=== PATIENT | female | born 1950 | race Caucasian/White ===

== ENCOUNTER 2018-02-12 16:18 | Outpatient (RCR) | payer BC, SELFPAY ==
[2018-02-12 17:38] LABS: International Normalized Ratio 1.6; Prothrombin Time (Protime)PT. 18.9 SECONDS (11.7-14.9)
== END 2018-02-12 17:00 | disposition home or self-care (01) ==
LOC: LAB 16:18
PROVIDERS: Family Provider Family Medicine; PCP Family Medicine; Visit Provider Internal Medicine Cardiovascular Disease
DX: I48.91 Unspecified atrial fibrillation (principal); Z79.01 Long term (current) use of anticoagulants
CPT/HCPCS: 36415; 85610

== ENCOUNTER 2018-03-15 16:04 | Outpatient (RCR) | payer BC, SELFPAY ==
[2018-02-19 17:19] LABS: International Normalized Ratio 2.1; Prothrombin Time (Protime)PT. 23.7 SECONDS (11.7-14.9)
[2018-02-28 11:59] LABS: International Normalized Ratio 2.5; Prothrombin Time (Protime)PT. 27.5 SECONDS (11.7-14.9)
[2018-03-15 16:58] LABS: International Normalized Ratio 3.9
[2018-03-15 17:19] LABS: AST(SGOT) 16 U/L (15-37); Alanine Aminotransfer ALT/SGPT 31 U/L (13-56); Albumin, Serum 3.3 g/dL (3.2-5.0); Alkaline Phosphatase 114 U/L (45-117); Bilirubin, Direct 0.27 mg/dL (0.00-0.30); Cholesterol 105 mg/dL (200); Globulin 4.1 g/dL (2.2-4.2); High Density Lipoprotein 43 mg/dL; Protein, Total 7.4 g/dL (6.4-8.2); Triglycerides 96 mg/dL; Very Low Density Lipoprotein 19 mg/dL (5-40)
[2018-03-15 17:32] LABS: Prothrombin Time (Protime)PT. 38.8 SECONDS (11.7-14.9)
== END 2018-03-15 17:00 | disposition home or self-care (01) ==
LOC: LAB 16:04
PROVIDERS: Family Provider Family Medicine; PCP Family Medicine; Visit Provider Internal Medicine Cardiovascular Disease
DX: I48.91 Unspecified atrial fibrillation (principal); Z79.01 Long term (current) use of anticoagulants; E78.5 Hyperlipidemia, unspecified; E11.9 Type 2 diabetes mellitus without complications; E66.9 Obesity, unspecified
CPT/HCPCS: 36415; 80061; 80076; 85610

== ENCOUNTER 2018-03-20 04:45 | Inpatient (IN) | payer BC, MEDICARE, SELFPAY ==
[2018-03-20] VITALS (14 sets, daily range): BP systolic 94–134; BP diastolic 43–97; PULSE 79–119; RESP 14–24; TEMP 36.5–36.8; O2SAT 94–98; BMI 47.9; BMI 46.1
--- NOTE | 2018-03-20 04:48 | RAD_ITS ---
STUDY: X-RAY CHEST REASON FOR EXAM: Female, 67 years old. Shortness of breath. TECHNIQUE: AP portable chest. COMPARISON: October 20, 2015. FINDINGS: The lungs are clear and expanded. There is no demonstrated pleural abnormality. Normal size heart. Normal mediastinum and yaquelin. Normal visualized pulmonary arteries. Normal visualized aortic arch and descending thoracic aorta. Normal visualized thoracic spine. Normal visualized ribs, clavicles, and shoulders. There is no demonstrated abnormality of the visualized soft tissue structures of the upper abdomen. RAD/Chest 1 View (Portable) IMPRESSION: Normal x-ray examination of the chest. Electronically Signed: Ryan Mg MD at 5:45 EDT , Service support ,
--- NOTE | 2018-03-20 04:48 | EKG12_ITS ---
Test Reason : SOB Blood Pressure : / mmHG Vent. Rate : 119 BPM Atrial Rate : 115 BPM P-R Int : 000 ms QRS Dur : 070 ms QT Int : 300 ms P-R-T Axes : 000 027 029 degrees QTc Int : 422 ms Atrial fibrillation Low voltage QRS Abnormal ECG Confirmed by FERCHO FIELDS, CORINE ([id number]), newspaper or periodical editor HOMAR BARNES ([id number] on 03/23/2018 3:19:58 PM Referred By: DR URBINA Confirmed By:CORINE BRANTLEY MD
--- NOTE | 2018-03-20 04:51 | ED.VISSUMM ---
- ER Visit Summary Date of Service: 03/20/18 Chief Complaint: Shortness of breath, chest heaviness History of Present Illness: The patient is a 67 F with medical history significant for atrial fibrillation and hypertension presents to the emergency department with shortness of breath. The patient follows with Dr. Vang for history of atrial fibrillation. She is on Coumadin. She was actually seen in the office about 10 days ago. She states that she has been having some exertional dyspnea at work. She works at [employer] at night. She states that tonight, she was working and began to have shortness of breath and lightheadedness. She states she felt as if she is going to pass out. She also had chest tightness which she states is new for her. She has been having shortness of breath with exertion over the past month. This was actually documented on her last office note. The plan was for her to have outpatient dobutamine stress echo. She states that tonight, the symptoms just did not relieved with rest. She denies any history of cardiovascular disease. She has never had a heart attack. Her last cardiac workup was in 2014. Physical Examination: Vital signs reviewed General: Well-nourished, well-developed Head: Normocephalic, atraumatic Eyes: Pupils equal and reactive, extraocular muscles intact Neck, supple, no lymphadenopathy Heart: Iregular rate and rhythm Respiratory: No distress, clear bilaterally Abdomen: Soft, nontender, nondistended, no peritoneal signs Back: Nontender Extremities: Nontender, no edema, no cords Skin: Normal color no rash Neuro: Alert and oriented, no focal or lateralizing deficits Test Results: [] Emergency Department Course and Treatment: It is difficult to self the patient is symptomatic from her atrial fibrillation versus another cause like cardiovascular disease or her underlying valvular disease. In review the notes, Dr. Vang did want her to have an outpatient echo and dobutamine stress. She has been having increasing dyspnea especially working. The patient did have A. fib on arrival, and her rate was 90s-1 teens. Her EKG does not show acute ischemic change. Chest x-ray shows no evidence of volume overload. The patient did have pain improvement with nitro in route by squad. Screening labs do demonstrate hyperkalemia with evidence of acute kidney injury. Patient does have some mild peaking of the T waves, but it is hard to tell if this is an acute change from her prior EKG. She is treated with calcium, insulin, dextrose, Kayexalate, and albuterol. With the patient's hyperkalemia, acute kidney injury, and exertional dyspnea I do feel that she will require admission. Patient was discussed with the hospitalist. Treatment Plan: [] Disposition: Admission Impression:. 1. Hyperkalemia 2. Acute kidney injury 3. exertional dyspnea 4. Chest tightness 5. Atrial fibrillation This note was generated with [employer] dictation software. It may contain incorrect words, spelling, and punctuation that were not noted in review of the chart prior to signing ED Disposition - Plan for ED Patient: Chief Complaint: Shortness of Breath Referrals: Tony Montesinos MD [Primary Care Provider] -
[2018-03-20] MEDS: Ondansetron 4 MG/2 ML Vial IV (04:58)
[2018-03-20 05:14] LABS: Absolute Lymphocyte Count 2.07 X10^3/ul (0.83-4.51); Absolute Neutrophil Count 8.6 X10^3/uL (2.0-7.7); Basophil# 0.03 X10^3/uL; Basophil% 0.3 % (0-1); Eosinophil# 0.01 X10^3/uL; Eosinophils% 0.1 % (0-5); Hematocrit 43.1 % (37-47); Hemoglobin 14.5 g/dl (12.0-15.0); Lymphocyte # 2.07 X10^3/ul (4.0); Lymphocyte % 17.7 % (19-41); Mean Corp Hgb Conc 33.6 g/gl (32-36); Mean Corpuscular Hgb 29.8 pg (27.0-32.0); Mean Corpuscular Volume 88.5 fL (81-99); Monocyte# 0.96 X10^3/uL; Monocyte% 8.2 % (0-10); Neutrophil # 8.61 X10^3/uL (2.7-7.7); Neutrophil % 73.5 % (47-70); Platelet Count 281 K/mm3 (150-450); RBC Distribution Width CV 14.5 % (11.6-14.6); RBC Distribution Width SD 46.1 fl (35.1-43.9); Red Blood Count 4.87 M/mm3 (4.2-5.4); White Blood Count 11.7 K/mm3 (4.4-11.0)
[2018-03-20 05:20] LABS: POSITIVE COUNT NO; POSITIVE DIFFERENTIAL NO; POSITIVE MORPHOLOGY NO
[2018-03-20 05:23] LABS: International Normalized Ratio 3.4; Prothrombin Time (Protime)PT. 34.9 SECONDS (11.7-14.9)
[2018-03-20 06:28] LABS: Anion Gap 9 (5-15); BUN 53 mg/dL (7-18); BUN/Creat Ratio 20.5 RATIO (10-20); Chloride 100 mmol/L (98-107); Creatinine, Serum 2.58 mg/dL (0.55-1.02); EST Glomerular Filtration Rate 20 mL/min (>60); Est Glom Filt Rate - Afr Amer 24 mL/min (>60); Estimated Creatinine Clearance 16.28 ml/min; Glucose 283 mg/dL (74-106); Potassium 6.3 mmol/L (3.5-5.1); Sodium Level 134 mmol/L (136-145)
--- NOTE | 2018-03-20 06:30 | ED.RN ---
LAB CALLED TO REPORT K+ 6.3, MADE AWARE.
[2018-03-20] MEDS: Albuterol 2.5 MG/3 ML VIAL.NEB. 5 MG INHALATION (06:48)
[2018-03-20] MEDS: Dextrose 50%-Water 25 GM/50 ML DISP.SYRIN IV (07:02)
[2018-03-20] MEDS: Sodium Polystyrene Sulfonate 15 GM/60 ML UDC 30 GM PO (07:02)
--- NOTE | 2018-03-20 07:42 | PCM.HP.STD ---
Problem List (1) Chest pain Status: Acute (2) JEWELL (acute kidney injury) Status: Acute (3) Nonrheumatic mitral (valve) stenosis Status: Chronic (4) Pulmonary hypertension Status: Chronic (5) Hypertension Status: Chronic (6) Peripheral edema Status: Chronic (7) Hyperlipidemia Status: Chronic (8) Obesity Status: Chronic (9) Diabetes mellitus type 2 in obese Status: Chronic (10) Atrial fibrillation Status: Chronic History of Present Illness Date of Admission: 03/20/18 Chief Complaint: chest pain The patient is a 67 year old F who has been experiencing chest pain with exertion. Chest pain with exertion is been going on for the past few days. 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 Patient was concerned and presented to the emergency room. In the emergency room, patient was found to be in atrial fibrillation. Patient had a creatinine of 2.58 which is up from her baseline of 1.04. She had a hemolyzed blood sample that showed a potassium of 6.3. It is unknown to the emergency room physician that she had a hemolyzed sample as he was in the midst of a critically ill patient at that time but did order for the patient have albuterol, calcium gluconate, insulin and dextrose. Patient is currently chest pain-free at this time. Patient is being admitted for further chest pain evaluation plus evaluation of her acute kidney injury. [] Past Medical History Past Medical History (Chronic Problems): Chronic Problems (Last Reviewed 03/09/18 @ 10:38 by Audra Hinds) History of bilateral knee replacement (Chronic) Nonrheumatic mitral (valve) stenosis (Chronic) Pulmonary hypertension (Chronic) Nonrheumatic tricuspid (valve) insufficiency (Chronic) Paroxysmal atrial fibrillation (Chronic) prison current use of anticoagulant (Chronic) Hypertension (Chronic) Peripheral edema (Chronic) Hyperlipidemia (Chronic) Obesity (Chronic) Diabetes mellitus type 2 in obese (Chronic) Atrial fibrillation (Chronic) Allergies No Known Allergies Allergy (Verified 03/20/18 05:05) Home Medications: Ambulatory Orders Medication Instructions Recorded Aspirin [Aspirin, Baby] 81 mg PO DAILY@0800 10/29/14 Atorvastatin Calcium [Lipitor] 20 mg PO QHS 10/29/14 Insulin Detemir [Levemir FlexPen] 30 units SC BID 10/29/14 Nebivolol HCl [Bystolic (Beta 5 mg PO DAILY 10/29/14 Jose)] acarbose 100 mg tablet 100 mg PO TID tab 03/09/18 dulaglutide 0.75 mg/0.5 mL 0.75 mg SC QWEEK 03/09/18 subcutaneous pen injector furosemide 40 mg tablet 40 mg PO DAILY #90 tab 03/09/18 insulin lispro (U-100) 100 unit/mL 4 unit SC .COMPLEX ml 03/09/18 subcutaneous pen metformin 500 mg tablet 500 mg PO QDAY tab 03/09/18 lisinopril 10 mg tablet 5 mg PO DAILY 03/19/18 Dapagliflozin Propanediol [Farxiga] 10 mg PO DAILY 03/20/18 Warfarin Sodium [Coumadin] 2 mg PO SUMOTUWETHSA 03/20/18 Warfarin [Coumadin ([facility])] 5 mg PO SUMOTUWETHSA 03/20/18 Warfarin [Coumadin ([facility])] 6 mg PO FR 03/20/18 Surgical History: total knee arthroplasty - Bilateral Psychiatric History: No pertinent psych hx Smoking Status: Never smoker Tobacco Use: Non-smoker Alcohol: None Drugs: None - *Family History Maternal History Items: No pertinent history, - - No heart disease Review of Systems Constitutional: Denies: Anorexia, Chills, Fever Eyes: Denies: Blurred vision, Double vision HEENT: Denies: Head Aches, Sinus Congestion, Sinus Drainage Cardiovascular: Reports: Chest Pain, Edema Respiratory: Reports: Shortness of breath upon exertion. Denies: Cough Gastrointestinal: Denies: Abdominal Pain, Nausea, Vomiting Genitourinary: Denies: Dysuria Musculoskeletal: Denies: Joint Pain, Joint Tenderness Skin: Denies: Dryness, Rash Neurological: Denies: Numbness, Tingling, Focal weakness Psychiatric: Denies: Anxiety, Depression Endocrine: Reports: Change in Body Habitus - Has put on 5 pounds in the past month. Hematologic/ Lymphatic: Reports: Easy Bleeding - R gets to be around 5. Denies: Hx of blood clot VTE Information - Inpt Only VTE Present on Admission: No Patient Problems: Active and Suspected Problems (Last Reviewed 03/09/18 @ 10:38 by Audra Hinds) Chest pain (Acute) JEWELL (acute kidney injury) (Acute) - Physical Exam General: Alert, Cooperative, No apparent distress HEENT: Atraumatic, Normocephalic Neck: No Nodes, Thyroid Normal Size and Texture Lungs: Clear to auscultation, Normal air movement, No rhonchi, No wheeze Cardiovascular: Regular rate, Regular Rhythm, Normal S1, Normal S2, No murmurs Abdomen: Bowel Sounds Present, Soft, Non Tender, Non-Distended, No Hepato-splenomegaly Extremities: No edema, No Calf Tenderness Skin: No rashes, No breakdown Musculoskeletal: No Tenderness to Palpation of Joints or Extremities, No Muscle Wasting Neurological: Neuro grossly intact, Muscle tone normal, Sensory exam intact to light touch and pain Psych/Mental Status: Normal Affect, Appropriate Vital Signs Temp Pulse Resp BP Pulse Ox 36.5 C L 119 H 17 117/56 L 96 03/20/18 07:15 03/20/18 07:15 03/20/18 07:15 03/20/18 07:15 03/20/18 07:15 Oxygen Flow Rate (L/min) 2 Oxygen Delivery Method Nasal Cannula Weight: 119 kg Body Mass Index (BMI) 47.9 Laboratory Tests Past 24 Hrs 03/20/18 03/20/18 03/20/18 04:55 04:55 04:55 WBC 11.7 H RBC 4.87 Hgb 14.5 Hct 43.1 MCV 88.5 MCH 29.8 MCHC 33.6 RDW 14.5 RDW Differential 46.1 H Plt Count 281 MPV 11.0 Immature Gran % (Auto) 0.200 Neut % (Auto) 73.5 H Lymph % (Auto) 17.7 L [place] % (Auto) 8.2 Eos % (Auto) 0.1 Baso % (Auto) 0.3 Absolute Neuts (auto) 8.6 H Absolute Lymphs (auto) 2.07 Total Counted Not Reportable PT 34.9 H INR 3.4 Sodium 134 L Potassium 6.3 H* Chloride 100 Carbon Dioxide 25.0 Anion Gap 9 BUN 53 H Creatinine 2.58 H Estim Creat Clear Calc 16.28 Est GFR (MDRD) Af Amer 24 L Est GFR (MDRD) Non-Af 20 L BUN/Creatinine Ratio 20.5 H Glucose 283 H Calcium 9.0 Troponin I < 0.02 B-Natriuretic Peptide 03/20/18 04:55 WBC RBC Hgb Hct MCV MCH MCHC RDW RDW Differential Plt Count MPV Immature Gran % (Auto) Neut % (Auto) Lymph % (Auto) [place] % (Auto) Eos % (Auto) Baso % (Auto) Absolute Neuts (auto) Absolute Lymphs (auto) Total Counted PT INR Sodium Potassium Chloride Carbon Dioxide Anion Gap BUN Creatinine Estim Creat Clear Calc Est GFR (MDRD) Af Amer Est GFR (MDRD) Non-Af BUN/Creatinine Ratio Glucose Calcium Troponin I B-Natriuretic Peptide 34.0 Clinical Impression(s) from Imaging Studies Chest X-Ray 03/20/18 04:48 IMPRESSION: Normal x-ray examination of the chest. Electronically Signed: Ryan Mg MD at 5:45 EDT , Service support , EKG reviewed and showed atrial fibrillation. Assessment/Plan Active and Suspected Problems (Last Reviewed 03/09/18 @ 10:38 by Audra Hinds) Chest pain (Acute) JEWELL (acute kidney injury) (Acute) 1. Chest pain Concern for stable angina Cycle troponins, check stress test, check an echocardiogram. 2. Acute kidney injury I presume prerenal. Check urine studies IV fluids Hold Lasix, metformin, lisinopril, acarbose 3. 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 Overall complicating patient's care. 4. Atrial fibrillation In RVR currently Will monitor continue for bsystolic Hold Coumadin given supratherapeutic INR for now. Patient is not a candidate for novel anticoagulants given her mitral stenosis 5. Mitral stenosis Complicating care Follow-up with cardiology as outpatient 6. Diabetes mellitus type 2 Insulin-dependent Given acute kidney injury, hold metformin and acarbose. 7. DVT prophylaxis patient is currently anticoagulated. Code Visit Inpatient E&M: 90363 Init Hosp L3
--- NOTE | 2018-03-20 07:53 | HP.PCM_ITS ---
Problem List (1) Chest pain Status: Acute (2) JEWELL (acute kidney injury) Status: Acute (3) Nonrheumatic mitral (valve) stenosis Status: Chronic (4) Pulmonary hypertension Status: Chronic (5) Hypertension Status: Chronic (6) Peripheral edema Status: Chronic (7) Hyperlipidemia Status: Chronic (8) Obesity Status: Chronic (9) Diabetes mellitus type 2 in obese Status: Chronic (10) Atrial fibrillation Status: Chronic History of Present Illness Date of Admission: 03/20/18 Chief Complaint: chest pain The patient is a 67 year old F who has been experiencing chest pain with exertion. Chest pain with exertion is been going on for the past few days. 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 Patient was concerned and presented to the emergency room. In the emergency room, patient was found to be in atrial fibrillation. Patient had a creatinine of 2.58 which is up from her baseline of 1.04. She had a hemolyzed blood sample that showed a potassium of 6.3. It is unknown to the emergency room physician that she had a hemolyzed sample as he was in the midst of a critically ill patient at that time but did order for the patient have albuterol, calcium gluconate, insulin and dextrose. Patient is currently chest pain-free at this time. Patient is being admitted for further chest pain evaluation plus evaluation of her acute kidney injury. [] Past Medical History Past Medical History (Chronic Problems): Chronic Problems (Last Reviewed 03/09/18 @ 10:38 by Audra Hinds) History of bilateral knee replacement (Chronic) Nonrheumatic mitral (valve) stenosis (Chronic) Pulmonary hypertension (Chronic) Nonrheumatic tricuspid (valve) insufficiency (Chronic) Paroxysmal atrial fibrillation (Chronic) alf current use of anticoagulant (Chronic) Hypertension (Chronic) Peripheral edema (Chronic) Hyperlipidemia (Chronic) Obesity (Chronic) Diabetes mellitus type 2 in obese (Chronic) Atrial fibrillation (Chronic) Allergies No Known Allergies Allergy (Verified 03/20/18 05:05) Home Medications: Ambulatory Orders Medication Instructions Recorded Aspirin [Aspirin, Baby] 81 mg PO DAILY@0800 10/29/14 Atorvastatin Calcium [Lipitor] 20 mg PO QHS 10/29/14 Insulin Detemir [Levemir FlexPen] 30 units SC BID 10/29/14 Nebivolol HCl [Bystolic (Beta 5 mg PO DAILY 10/29/14 Jose)] acarbose 100 mg tablet 100 mg PO TID tab 03/09/18 dulaglutide 0.75 mg/0.5 mL 0.75 mg SC QWEEK 03/09/18 subcutaneous pen injector furosemide 40 mg tablet 40 mg PO DAILY #90 tab 03/09/18 insulin lispro (U-100) 100 unit/mL 4 unit SC .COMPLEX ml 03/09/18 subcutaneous pen metformin 500 mg tablet 500 mg PO QDAY tab 03/09/18 lisinopril 10 mg tablet 5 mg PO DAILY 03/19/18 Dapagliflozin Propanediol [Farxiga] 10 mg PO DAILY 03/20/18 Warfarin Sodium [Coumadin] 2 mg PO SUMOTUWETHSA 03/20/18 Warfarin [Coumadin ([facility])] 5 mg PO SUMOTUWETHSA 03/20/18 Warfarin [Coumadin ([facility])] 6 mg PO FR 03/20/18 Surgical History: total knee arthroplasty - Bilateral Psychiatric History: No pertinent psych hx Smoking Status: Never smoker Tobacco Use: Non-smoker Alcohol: None Drugs: None - *Family History Maternal History Items: No pertinent history, - - No heart disease Review of Systems Constitutional: Denies: Anorexia, Chills, Fever Eyes: Denies: Blurred vision, Double vision HEENT: Denies: Head Aches, Sinus Congestion, Sinus Drainage Cardiovascular: Reports: Chest Pain, Edema Respiratory: Reports: Shortness of breath upon exertion. Denies: Cough Gastrointestinal: Denies: Abdominal Pain, Nausea, Vomiting Genitourinary: Denies: Dysuria Musculoskeletal: Denies: Joint Pain, Joint Tenderness Skin: Denies: Dryness, Rash Neurological: Denies: Numbness, Tingling, Focal weakness Psychiatric: Denies: Anxiety, Depression Endocrine: Reports: Change in Body Habitus - Has put on 5 pounds in the past month. Hematologic/ Lymphatic: Reports: Easy Bleeding - R gets to be around 5. Denies : Hx of blood clot VTE Information - Inpt Only VTE Present on Admission: No Patient Problems: Active and Suspected Problems (Last Reviewed 03/09/18 @ 10:38 by Audra Hinds) Chest pain (Acute) JEWELL (acute kidney injury) (Acute) - Physical Exam General: Alert, Cooperative, No apparent distress HEENT: Atraumatic, Normocephalic Neck: No Nodes, Thyroid Normal Size and Texture Lungs: Clear to auscultation, Normal air movement, No rhonchi, No wheeze Cardiovascular: Regular rate, Regular Rhythm, Normal S1, Normal S2, No murmurs Abdomen: Bowel Sounds Present, Soft, Non Tender, Non-Distended, No Hepato- splenomegaly Extremities: No edema, No Calf Tenderness Skin: No rashes, No breakdown Musculoskeletal: No Tenderness to Palpation of Joints or Extremities, No Muscle Wasting Neurological: Neuro grossly intact, Muscle tone normal, Sensory exam intact to light touch and pain Psych/Mental Status: Normal Affect, Appropriate Vital Signs Temp Pulse Resp BP Pulse Ox 36.5 C L 119 H 17 117/56 L 96 03/20/18 07:15 03/20/18 07:15 03/20/18 07:15 03/20/18 07:15 03/20/18 07:15 Oxygen Flow Rate (L/min) 2 Oxygen Delivery Method Nasal Cannula Weight: 119 kg Body Mass Index (BMI) 47.9 Laboratory Tests Past 24 Hrs 03/20/18 03/20/18 03/20/18 04:55 04:55 04:55 WBC 11.7 H RBC 4.87 Hgb 14.5 Hct 43.1 MCV 88.5 MCH 29.8 MCHC 33.6 RDW 14.5 RDW Differential 46.1 H Plt Count 281 MPV 11.0 Immature Gran % (Auto) 0.200 Neut % (Auto) 73.5 H Lymph % (Auto) 17.7 L [place] % (Auto) 8.2 Eos % (Auto) 0.1 Baso % (Auto) 0.3 Absolute Neuts (auto) 8.6 H Absolute Lymphs (auto) 2.07 Total Counted Not Reportable PT 34.9 H INR 3.4 Sodium 134 L Potassium 6.3 H* Chloride 100 Carbon Dioxide 25.0 Anion Gap 9 BUN 53 H Creatinine 2.58 H Estim Creat Clear Calc 16.28 Est GFR (MDRD) Af Amer 24 L Est GFR (MDRD) Non-Af 20 L BUN/Creatinine Ratio 20.5 H Glucose 283 H Calcium 9.0 Troponin I < 0.02 B-Natriuretic Peptide 03/20/18 04:55 WBC RBC Hgb Hct MCV MCH MCHC RDW RDW Differential Plt Count MPV Immature Gran % (Auto) Neut % (Auto) Lymph % (Auto) [place] % (Auto) Eos % (Auto) Baso % (Auto) Absolute Neuts (auto) Absolute Lymphs (auto) Total Counted PT INR Sodium Potassium Chloride Carbon Dioxide Anion Gap BUN Creatinine Estim Creat Clear Calc Est GFR (MDRD) Af Amer Est GFR (MDRD) Non-Af BUN/Creatinine Ratio Glucose Calcium Troponin I B-Natriuretic Peptide 34.0 Clinical Impression(s) from Imaging Studies Chest X-Ray 03/20/18 04:48 IMPRESSION: Normal x-ray examination of the chest. Electronically Signed: Ryan Mg MD at 5:45 EDT , Service support , EKG reviewed and showed atrial fibrillation. Assessment/Plan Active and Suspected Problems (Last Reviewed 03/09/18 @ 10:38 by Audra Hinds) Chest pain (Acute) JEWELL (acute kidney injury) (Acute) 1. Chest pain * Concern for stable angina * Cycle troponins, check stress test, check an echocardiogram. 2. Acute kidney injury * I presume prerenal. * Check urine studies * IV fluids * Hold Lasix, metformin, lisinopril, acarbose 3. Pulmonary hypertension * Group 2 due to left heart disease * Treat the underlying process. Overall complicating patient's care. 4. Atrial fibrillation * In RVR currently * Will monitor * continue for bsystolic * Hold Coumadin given supratherapeutic INR for now. * Patient is not a candidate for novel anticoagulants given her mitral stenosis 5. Mitral stenosis * Complicating care * Follow-up with cardiology as outpatient 6. Diabetes mellitus type 2 * Insulin-dependent * Given acute kidney injury, hold metformin and acarbose. 7. DVT prophylaxis patient is currently anticoagulated. Code Visit Inpatient E&M: 10114 Init Hosp L3
--- NOTE | 2018-03-20 09:13 | ECHOD_ITS ---
Reason For Study: AFIB Procedure This was a 2D Doppler, Color Flow transthoracic echocardiogram. The exam was of adequate technical quality. Exam performed portable in patient room. Left Ventricle Normal LV size. Left ventricular systolic function is normal. The estimated ejection fraction is 65 %. Unable to assess diastolic dysfunction. No regional wall motion abnormalities noted. Right Ventricle Normal RV size. Normal systolic function. Atria The left atrium is severely enlarged. The right atrium is moderately enlarged. No doppler evidence for ASD. Mitral Valve There is moderate to severe mitral annular calcification. Extension of the mitral annular calcifiation onto the posterior mitral valve leaflet. Mild (1+) mitral valve insufficiency. Tricuspid Valve Normal tricuspid valve. Mild tricuspid valve insufficiency. Right ventricular systolic pressure estimated to be 38 mmHg. Aortic Valve Trisinus/trileaflet aortic valve. Normal aortic valve. Pulmonic Valve The pulmonic valve is not well visualized. Trivial pulmonic valve insufficiency. Great Vessels Normal sized aortic root. Pericardium/Pleural No pericardial effusion. MMode/2D Measurements & Calculations LVIDd: 4.5 cm IVSd: 0.99 cm Ao root diam: 3.5 cm LVIDs: 3.1 cm LVPWd: 0.99 cm RVDd: 3.3 cm FS: 31.0 % LAV(MOD-bp): 87.1 ml LA A4 area: 27.3 cm2 RA A4 area: 18.9 cm2 LAV(MOD-bp) Indexed: 41.3 ml/m2 LAV(MOD-sp2): 85.8 ml LAV(MOD-sp4): 83.8 ml Doppler Measurements & Calculations Lat Peak E' Abdiaziz: 10.7 cm/sec Med Peak E' Abdiaziz: 8.6 cm/sec MV V2 max: 154.0 cm/sec MV max P.5 mmHg MV V2 mean: 93.8 cm/sec MV mean P.0 mmHg MV V2 VTI: 24.1 cm Ao V2 max: 153.2 cm/sec LV V1 max: 112.3 cm/sec PA V2 max: 105.7 cm/sec Ao max P.5 mmHg LV V1 max P.1 mmHg TR max abdiaziz: 272.8 cm/sec TR max P.9 mmHg Interpretation Summary Left ventricular systolic function is normal. The estimated ejection fraction is 65 %. The left atrium is severely enlarged. The right atrium is moderately enlarged. There is moderate to severe mitral annular calcification. Extension of the mitral annular calcifiation onto the posterior mitral valve leaflet. Mild (1+) mitral valve insufficiency. Trivial pulmonic valve insufficiency. Right ventricular systolic pressure estimated to be 38 mmHg. Unable to assess diastolic dysfunction. Ordering Physician: Bello Flowers Referring Physician: BELLO ESCOBAR Performed By: Jessica Tee, JUAN ALBERTO, RVT
[2018-03-20] MEDS: 0.9% Normal Saline 1,000 ML 125 ML IV (09:58)
[2018-03-20 10:06] LABS: Bedside Glucose 175 mg/dL (70-110)
[2018-03-20 10:14] LABS: Anion Gap 11 (5-15); BUN 56 mg/dL (7-18); Chloride 105 mmol/L (98-107); Creatinine, Serum 2.24 mg/dL (0.55-1.02); EST Glomerular Filtration Rate 23 mL/min (>60); Est Glom Filt Rate - Afr Amer 28 mL/min (>60); Estimated Creatinine Clearance 18.75 ml/min; Glucose 153 mg/dL (74-106); Potassium 4.2 mmol/L (3.5-5.1); Sodium Level 140 mmol/L (136-145)
--- NOTE | 2018-03-20 11:30 | CASEMGMT ---
RN CADEN Face to Face with patient for initial transition planning/care coordination assessment. RN CM introduced self and role at [facility]. Patient lying in bed, alert and oriented. Patient willing to participate in assessment and is able to answer all questions appropriately. Care providers, pharmacy, and demographics verified. See link attached. Patient wishes to discharge home, denies need for home health at this time. Patient states she has no further needs or concerns at this time. CM to follow for discharge planning needs that may arise. Disposition Plan: Patient to discharge home with family support and follow up plans in place.
[2018-03-20 13:01] LABS: Mucous, Urine 0 SEEN /hpf (<or=2+)
[2018-03-20 13:12] LABS: Color, Urine Yellow (Yellow); Glucose, Dipstick 1000 mg/dl (Normal); Ketone-Dipstick Negative (Negative); Leukocyte Esterase-Dipstick 500 /ul (Negative); Nitrite-Dipstick Negative (Negative); Occult Blood-Urine 25 /ul (Negative); Protein-Dipstick 15 mg/dl (Negative); Urine Bilirubin Dipstick Negative (Negative); Urine Clarity Cloudy (Clear); Urine Urobilinogen Normal (Normal)
[2018-03-20 13:20] LABS: Red Blood Cells-Urine 0-5 SEEN /hpf (0-5); Squamous Epithelial Cells - UA 0-5 SEEN /hpf (5-10); Transitional Epithelial - Ur 0-5 SEEN /hpf (0-5); White Blood Cells 50-100 SEEN /hpf (0-5)
[2018-03-20 13:21] LABS: Bacteria 1+ /hpf (None Seen)
[2018-03-20 13:24] LABS: Urea Nitrogen, Urine 709 mg/dL (NO RANGE EST.)
--- NOTE | 2018-03-20 13:27 | ED.RN ---
(late entry) Calcium gluconate stopped at 0805 after infusion.
[2018-03-20] MEDS: Nystatin Powder 15gm Bottle 1 APPLIC TOPICAL ×2 (13:36→22:16)
[2018-03-20 16:45] LABS: Bedside Glucose 119 mg/dL (70-110)
[2018-03-20] MEDS: Atorvastatin Calcium 20 MG Tablet PO (22:16)
[2018-03-20 22:26] LABS: Bedside Glucose 116 mg/dL (70-110)
[2018-03-21 03:05] VITALS: PULSE 79
[2018-03-21 03:37] VITALS: BP 128/57; PULSE 94; RESP 16; TEMP 37.1; O2SAT 97
[2018-03-21 06:04] LABS: Hematocrit 39.3 % (37-47); Hemoglobin 12.8 g/dl (12.0-15.0); Mean Corp Hgb Conc 32.6 g/gl (32-36); Mean Corpuscular Hgb 29.4 pg (27.0-32.0); Mean Corpuscular Volume 90.1 fL (81-99); Mean Platelet Vol. 10.6 fl (6.2-12.0); Platelet Count 215 K/mm3 (150-450); RBC Distribution Width SD 45.8 fl (35.1-43.9); Red Blood Count 4.36 M/mm3 (4.2-5.4); White Blood Count 6.2 K/mm3 (4.4-11.0)
[2018-03-21 06:10] LABS: Scan Indicated on CBC? Y/N NO
[2018-03-21] MEDS: Nystatin Powder 15gm Bottle 1 APPLIC TOPICAL ×2 (06:12→13:54)
[2018-03-21 06:27] LABS: Anion Gap 6 (5-15); BUN 44 mg/dL (7-18); BUN/Creat Ratio 32.4 RATIO (10-20); Calcium,Total 8.7 mg/dL (8.5-10.1); Chloride 110 mmol/L (98-107); Creatinine, Serum 1.36 mg/dL (0.55-1.02); EST Glomerular Filtration Rate 41 mL/min (>60); Est Glom Filt Rate - Afr Amer 50 mL/min (>60); Estimated Creatinine Clearance 30.88 ml/min; Glucose 57 mg/dL (74-106); Sodium Level 142 mmol/L (136-145)
[2018-03-21 06:40] VITALS: PULSE 100
--- NOTE | 2018-03-21 09:03 | STRESSREP ---
Stress Test Report Pharmacologic myocardial perfusion stress test. 67-year-old lady with a history of chest pain. Stress protocol: Resting EKG demonstrates atrial for ablation with a rate of 100 bpm. Resting blood pressure is 122/68 mmHg. 0.4 mg of regadenoson was infused per usual protocol followed by rapid intravenous saline flush injection continuous EKG monitoring was performed. The patient maintained atrial fibrillation throughout the recording. The maximum heart rate attained was 142 bpm which was 94% of maximum predicted heart rate the maximum workload attained was 1 metabolic equivalent. At rest there were no ST or T-wave changes noted suggest abnormal flow reserve at peak infusion no ST or T-wave changes were noted to suggest abnormal flow reserve. No clinical angina was noted. The resting blood pressure is 122/68 with a final blood pressure 122/78. Myocardial perfusion protocol. 14.9 mCi of technetium 99m sestamibi was injected at rest. 0.4 mg of regadenoson was infused per usual protocol. Peak infusion 44.7 mCi equivalents of test technetium 99m sestamibi was injected stress images were obtained stress and rest images were reconstructed and compared in the short axis vertical long and horizontal long axis. Gated images were also obtained pre- Perfusion SPECT analysis. Review of the stress images demonstrate normal uptake of tracer noted in all areas of the myocardium. The resting images similarly demonstrate normal uptake of tracer noted in all areas of the myocardium. No areas of reversibility are noted suggest ischemia no previous infarct is noted. Gated SPECT SPECT analysis The gated ejection fraction is 77%. Conclusion: Normal pharmacologic myocardial perfusion stress test with no evidence of ischemia. Atrial fibrillation noted. Preserved ejection fraction.
[2018-03-21 09:52] VITALS: BP 124/70; PULSE 97; RESP 18; TEMP 36.7; O2SAT 94
[2018-03-21] MEDS: Aspirin 81 MG TAB.CHEW PO (09:59)
[2018-03-21 10:05] VITALS: RESP 18
[2018-03-21 10:06] LABS: Bedside Glucose 110 mg/dL (70-110)
[2018-03-21 11:05] VITALS: PULSE 102
[2018-03-21 11:56] LABS: Bedside Glucose 146 mg/dL (70-110)
[2018-03-21 12:13] LABS: International Normalized Ratio 2.6; Prothrombin Time (Protime)PT. 28.1 SECONDS (11.7-14.9)
--- NOTE | 2018-03-21 13:50 | DCINST_ITS ---
- Discharge Diagnoses Current Active Problems: Current Active and Chronic Problems (Last Reviewed 03/09/18 @ 10:38 by Audra Hinds) Chest pain (Acute) JEWELL (acute kidney injury) (Acute) You will use the following diet at home:: Calorie/Carbohydrate Controlled ( specify 1200, 1400, etc) - 1800 kcal/day, Cardiac Your food should be the consistency of: Regular Your liquids should be the consistency of: Regular/Thin Discharge Activity: Return to Normal Activity Call your doctor if you observe: Fever of 101 or Higher, Shortness of breath Instructions: Discharge Instructions for Acute Kidney Injury Allergies/Adverse Reactions: Allergies No Known Allergies Allergy (Verified 03/20/18 05:05) Medications to take at Discharge Aspirin [Aspirin, Baby] 81 mg PO DAILY@0800 10/29/14 Atorvastatin Calcium [Lipitor] 20 mg PO QHS 10/29/14 Insulin Detemir [Levemir FlexPen] 30 units SC BID 10/29/14 Nebivolol HCl [Bystolic (Beta Jose)] 5 mg PO DAILY 10/29/14 dulaglutide 0.75 mg/0.5 mL subcutaneous pen injector 0.75 mg SC QWEEK 03/09/18 insulin lispro (U-100) 100 unit/mL subcutaneous pen 4 unit SC ACHS ml 03/09/18 lisinopril 10 mg tablet 5 mg PO DAILY 03/19/18 Dapagliflozin Propanediol [Farxiga] 10 mg PO DAILY 03/20/18 Warfarin Sodium [Coumadin] 2 mg PO SUMOTUWETHSA 03/20/18 Warfarin [Coumadin] 5 mg PO SUMOTUWETHSA 03/20/18 Warfarin [Coumadin] 6 mg PO FR 03/20/18 Furosemide [Lasix] 40 mg PO DAILY PRN #90 tab 03/21/18 Primary Care Physician: Tony Montesinos MD [Primary Care Provider] - Within 2 Weeks
--- NOTE | 2018-03-21 13:50 | PCM.DC.SUM ---
Discharge Date and Diagnosis - Problem List Patient Problems: Active and Suspected Problems (Last Reviewed 03/09/18 @ 10:38 by Audra Hinds) Chest pain (Acute) JEWELL (acute kidney injury) (Acute) Date of Admission: 03/20/18 Date of Discharge: 03/21/18 - Primary Discharge Diagnosis Active and Suspected Problems (Last Reviewed 03/09/18 @ 10:38 by Audra Hinds) Chest pain (Acute) JEWELL (acute kidney injury) (Acute) - Secondary Discharge Diagnosis Chronic Problems (Last Reviewed 03/09/18 @ 10:38 by Audra Hinds) History of bilateral knee replacement (Chronic) Nonrheumatic mitral (valve) stenosis (Chronic) Pulmonary hypertension (Chronic) Nonrheumatic tricuspid (valve) insufficiency (Chronic) Paroxysmal atrial fibrillation (Chronic) 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 Electronically Signed: Ryan Mg MD at 5:45 EDT , Service support , Operations: None Procedures: 2-D Echocardiogram, Stress test Summary of Care Provided: The patient is a 67 year old F presents with chest pain. Patient underwent a workup with a nuclear stress test that was negative. So no further cardiac workup is necessary. Patient did also present with acute kidney injury. She is creatinine was 2.58 on arrival. Baseline creatinine that we have available in our system was 1.04 from November 03, 2000 thousand 17. Patient's Lasix, lisinopril, metformin and acarbose were held. Today, the patient's creatinine is 1.36. I feel the patient may have been over diuresed so I have recommended patient will take Lasix as needed and to weigh herself daily and she put on 2 pounds in 1 day or 3 pounds 1 week then to take Lasix. Given the acute kidney injury and the fact the patient is already on insulin I have also recommended she DC the acarbose and metformin. Those 2 medications could be compounding the kidney failure. He did have an echocardiogram given her history of pulmonary hypertension but is essentially unchanged. Ejection fraction was 65%. Mitral stenosis remained unchanged. Patient follow-up cardiology as outpatient. 1. Chest pain Concern for stable angina Cycle troponins, check stress test, check an echocardiogram. 2. Acute kidney injury I presume prerenal. Check urine studies IV fluids Hold Lasix, metformin, lisinopril, acarbose 3. 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 Overall complicating patient's care. 4. Atrial fibrillation In RVR currently Will monitor continue for bsystolic Hold Coumadin given supratherapeutic INR for now. Patient is not a candidate for novel anticoagulants given her mitral stenosis 5. Mitral stenosis Complicating care Follow-up with cardiology as outpatient 6. Diabetes mellitus type 2 Insulin-dependent Given acute kidney injury, hold metformin and acarbose. [] Discharge Diet: Low fat/ Low Cholesterol, 1600 Calorie Control Diet Discharge Activity: Return to Normal Activity Call your doctor if you observe: Fever of 101 or Higher, Shortness of breath Home Medications: Medications to take at Discharge Aspirin [Aspirin, Baby] 81 mg PO DAILY@0800 10/29/14 Atorvastatin Calcium [Lipitor] 20 mg PO QHS 10/29/14 Insulin Detemir [Levemir FlexPen] 30 units SC BID 10/29/14 Nebivolol HCl [Bystolic (Beta Jose)] 5 mg PO DAILY 10/29/14 dulaglutide 0.75 mg/0.5 mL subcutaneous pen injector 0.75 mg SC QWEEK 03/09/18 insulin lispro (U-100) 100 unit/mL subcutaneous pen 4 unit SC ACHS ml 03/09/18 lisinopril 10 mg tablet 5 mg PO DAILY 03/19/18 Dapagliflozin Propanediol [Farxiga] 10 mg PO DAILY 03/20/18 Warfarin Sodium [Coumadin] 2 mg PO SUMOTUWETHSA 03/20/18 Warfarin [Coumadin] 5 mg PO SUMOTUWETHSA 03/20/18 Warfarin [Coumadin] 6 mg PO FR 03/20/18 Furosemide [Lasix] 40 mg PO DAILY PRN #90 tab 03/21/18 Primary Care Physician: Tony Montesinos MD [Primary Care Provider] - Within 2 Weeks Please Follow Up With: Roni Vang MD When: 4-6 weeks Patient Instructions: Discharge Instructions for Acute Kidney Injury Disposition: Home Minutes spent on discharge:: 32 Patient Condition:: Good Medical Necessity - Tobacco Use Smoking Status: Never smoker Tobacco Use: Non-smoker Meaningful Use Info Meaningful Use Diagnoses (Choose all that apply): None applicable Code Visit OBSV E&M: 02550 Observation care discharge
--- NOTE | 2018-03-21 13:53 | DS.PCM_ITS ---
Discharge Date and Diagnosis - Problem List Patient Problems: Active and Suspected Problems (Last Reviewed 03/09/18 @ 10:38 by Audra Hinds) Chest pain (Acute) JEWELL (acute kidney injury) (Acute) Date of Admission: 03/20/18 Date of Discharge: 03/21/18 - Primary Discharge Diagnosis Active and Suspected Problems (Last Reviewed 03/09/18 @ 10:38 by Audra Hinds) Chest pain (Acute) JEWELL (acute kidney injury) (Acute) - Secondary Discharge Diagnosis Chronic Problems (Last Reviewed 03/09/18 @ 10:38 by Audra Hinds) History of bilateral knee replacement (Chronic) Nonrheumatic mitral (valve) stenosis (Chronic) Pulmonary hypertension (Chronic) Nonrheumatic tricuspid (valve) insufficiency (Chronic) 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 Electronically Signed: Ryan Mg MD at 5:45 EDT , Service support , Operations: None Procedures: 2-D Echocardiogram, Stress test Summary of Care Provided: The patient is a 67 year old F presents with chest pain. Patient underwent a workup with a nuclear stress test that was negative. So no further cardiac workup is necessary. Patient did also present with acute kidney injury. She is creatinine was 2.58 on arrival. Baseline creatinine that we have available in our system was 1.04 from November 03, 2000 thousand 17. Patient's Lasix, lisinopril, metformin and acarbose were held. Today, the patient's creatinine is 1.36. I feel the patient may have been over diuresed so I have recommended patient will take Lasix as needed and to weigh herself daily and she put on 2 pounds in 1 day or 3 pounds 1 week then to take Lasix. Given the acute kidney injury and the fact the patient is already on insulin I have also recommended she DC the acarbose and metformin. Those 2 medications could be compounding the kidney failure. He did have an echocardiogram given her history of pulmonary hypertension but is essentially unchanged. Ejection fraction was 65% . Mitral stenosis remained unchanged. Patient follow-up cardiology as outpatient. 1. Chest pain * Concern for stable angina * Cycle troponins, check stress test, check an echocardiogram. 2. Acute kidney injury * I presume prerenal. * Check urine studies * IV fluids * Hold Lasix, metformin, lisinopril, acarbose 3. Pulmonary hypertension * Group 2 due to left heart disease * Treat the underlying process. Overall complicating patient's care. 4. Atrial fibrillation * In RVR currently * Will monitor * continue for bsystolic * Hold Coumadin given supratherapeutic INR for now. * Patient is not a candidate for novel anticoagulants given her mitral stenosis 5. Mitral stenosis * Complicating care * Follow-up with cardiology as outpatient 6. Diabetes mellitus type 2 * Insulin-dependent * Given acute kidney injury, hold metformin and acarbose. [] Discharge Diet: Low fat/ Low Cholesterol, 1600 Calorie Control Diet Discharge Activity: Return to Normal Activity Call your doctor if you observe: Fever of 101 or Higher, Shortness of breath Home Medications: Medications to take at Discharge Aspirin [Aspirin, Baby] 81 mg PO DAILY@0800 10/29/14 Atorvastatin Calcium [Lipitor] 20 mg PO QHS 10/29/14 Insulin Detemir [Levemir FlexPen] 30 units SC BID 10/29/14 Nebivolol HCl [Bystolic (Beta Jose)] 5 mg PO DAILY 10/29/14 dulaglutide 0.75 mg/0.5 mL subcutaneous pen injector 0.75 mg SC QWEEK 03/09/18 insulin lispro (U-100) 100 unit/mL subcutaneous pen 4 unit SC ACHS ml 03/09/18 lisinopril 10 mg tablet 5 mg PO DAILY 03/19/18 Dapagliflozin Propanediol [Farxiga] 10 mg PO DAILY 03/20/18 Warfarin Sodium [Coumadin] 2 mg PO SUMOTUWETHSA 03/20/18 Warfarin [Coumadin] 5 mg PO SUMOTUWETHSA 03/20/18 Warfarin [Coumadin] 6 mg PO FR 03/20/18 Furosemide [Lasix] 40 mg PO DAILY PRN #90 tab 03/21/18 Primary Care Physician: Tony Montesinos MD [Primary Care Provider] - Within 2 Weeks Please Follow Up With: Roni Vang MD When: 4-6 weeks Patient Instructions: Discharge Instructions for Acute Kidney Injury Disposition: Home Minutes spent on discharge:: 32 Patient Condition:: Good Medical Necessity - Tobacco Use Smoking Status: Never smoker Tobacco Use: Non-smoker Meaningful Use Info Meaningful Use Diagnoses (Choose all that apply): None applicable Code Visit OBSV E&M: 15417 Observation care discharge
[2018-03-22 13:12] LABS: Eosinophil Ct. Urine No Eosinophils Seen % (.)
--- NOTE | 2018-03-26 13:50 | CASEMGMT ---
RN CADEN DC Phone call. Call to cell phone, message left with call back information if pt would like to speak with SHIRLEY NEGRETE re: discharge, prescriptions or f/u appointments. Shahbaz OHARAN RN ACM
== END 2018-03-21 15:44 | disposition home or self-care (01) | DRG 313 ==
LOC: ED 05:33 → PCU 08:11
PROVIDERS: Emergency Provider Emergency Medicine; Family Provider Family Medicine; PCP Family Medicine
DX: R07.89 Other chest pain (principal); N17.9 Acute kidney failure, unspecified; Z68.42 Body mass index [BMI] 45.0-49.9, adult; I48.0 Paroxysmal atrial fibrillation; Z79.01 Long term (current) use of anticoagulants; E87.5 Hyperkalemia; I10 Essential (primary) hypertension; E78.5 Hyperlipidemia, unspecified; E11.9 Type 2 diabetes mellitus without complications; Z79.4 Long term (current) use of insulin; E66.9 Obesity, unspecified; Z71.3 Dietary counseling and surveillance; I27.20 Pulmonary hypertension, unspecified; I05.0 Rheumatic mitral stenosis
CPT/HCPCS: 36415; 71045; 78452; 80048; 81001; 82570; 82962; 83880; 84484; 84540; 85025; 85027; 85610; 87205; 93005; 93017; 93306; 94640; 99285; A9500; J7030; J7040; A4216; J0610; J2405; J2785

== ENCOUNTER → 2018-03-28 16:22 | Outpatient (CLI) | payer BC, SELFPAY ==
[2018-03-28 17:25] LABS: BUN 54 mg/dL (7-18); Creatinine, Serum 1.21 mg/dL (0.55-1.02); Glucose 159 mg/dL (74-106)
[2018-03-28 17:26] LABS: Anion Gap 7 (5-15); BUN/Creat Ratio 44.6 RATIO (10-20); Calcium,Total 8.5 mg/dL (8.5-10.1); Chloride 109 mmol/L (98-107); EST Glomerular Filtration Rate 47 mL/min (>60); Est Glom Filt Rate - Afr Amer 57 mL/min (>60); Potassium 4.5 mmol/L (3.5-5.1); Sodium Level 140 mmol/L (136-145)
[2018-03-28 17:46] LABS: International Normalized Ratio 2.4; Prothrombin Time (Protime)PT. 26.4 SECONDS (11.7-14.9)
== END ==
PROVIDERS: Family Provider Family Medicine; PCP Family Medicine
DX: N17.9 Acute kidney failure, unspecified (principal); Z79.01 Long term (current) use of anticoagulants; Z51.81 Encounter for therapeutic drug level monitoring
CPT/HCPCS: 36415; 80048; 85610

== ENCOUNTER 2018-04-05 17:15 | Outpatient (RCR) | payer BC, SELFPAY ==
[2018-04-05 17:44] LABS: International Normalized Ratio 1.9; Prothrombin Time (Protime)PT. 22.2 SECONDS (11.7-14.9)
[2018-04-05 18:15] LABS: Anion Gap 7 (5-15); BUN 38 mg/dL (7-18); BUN/Creat Ratio 33.9 RATIO (10-20); Calcium,Total 8.9 mg/dL (8.5-10.1); Chloride 108 mmol/L (98-107); Creatinine, Serum 1.12 mg/dL (0.55-1.02); EST Glomerular Filtration Rate 51 mL/min (>60); Est Glom Filt Rate - Afr Amer 62 mL/min (>60); Glucose 100 mg/dL (74-106); Potassium 4.5 mmol/L (3.5-5.1); Sodium Level 141 mmol/L (136-145)
== END 2018-04-05 18:00 | disposition home or self-care (01) ==
LOC: LAB 17:15
PROVIDERS: Family Provider Family Medicine; PCP Family Medicine; Visit Provider Internal Medicine Cardiovascular Disease
DX: E11.29 Type 2 diabetes mellitus with other diabetic kidney complication (principal); I48.91 Unspecified atrial fibrillation; Z79.01 Long term (current) use of anticoagulants
CPT/HCPCS: 36415; 80048; 85610

== ENCOUNTER → 2018-10-25 17:13 | Outpatient (CLI) | payer MEDICARE, OTHER, SELFPAY ==
[2018-10-25 16:17] VITALS: BMI 47.8
[2018-10-25 17:58] LABS: International Normalized Ratio 2.1; Prothrombin Time (Protime)PT. 23.2 SECONDS (11.7-14.9)
== END ==
PROVIDERS: Family Provider Family Medicine; PCP Family Medicine; Referring Provider Physician Assistant Medical; Visit Provider Physician Assistant Medical
DX: I34.2 Nonrheumatic mitral (valve) stenosis (principal)
CPT/HCPCS: 36415; 85610

== ENCOUNTER 2018-11-15 13:32 | Outpatient (RCR) | payer MEDICARE, SELFPAY ==
[2018-10-25 16:17] VITALS: BMI 47.8
[2018-11-15 14:56] LABS: International Normalized Ratio 1.8; Prothrombin Time (Protime)PT. 20.5 SECONDS (11.7-14.9)
== END 2018-11-15 14:00 | disposition home or self-care (01) ==
LOC: LAB 13:32
PROVIDERS: Family Provider Family Medicine; PCP Family Medicine; Referring Provider Internal Medicine Cardiovascular Disease; Visit Provider Internal Medicine Cardiovascular Disease
DX: I34.2 Nonrheumatic mitral (valve) stenosis (principal)
CPT/HCPCS: 36415; 85610

== ENCOUNTER 2018-12-17 16:09 | Outpatient (RCR) | payer MEDICARE, OTHER, SELFPAY ==
[2018-10-25 16:17] VITALS: BMI 47.8
[2018-12-03 17:32] LABS: International Normalized Ratio 2.8; Prothrombin Time (Protime)PT. 29.3 SECONDS (11.7-14.9)
[2018-12-17 17:24] LABS: International Normalized Ratio 2.1; Prothrombin Time (Protime)PT. 23.7 SECONDS (11.7-14.9)
== END 2018-12-17 17:00 | disposition home or self-care (01) ==
LOC: LAB 16:09
PROVIDERS: Family Provider Family Medicine; PCP Family Medicine; Referring Provider Internal Medicine Cardiovascular Disease; Visit Provider Internal Medicine Cardiovascular Disease
DX: I34.2 Nonrheumatic mitral (valve) stenosis (principal)
CPT/HCPCS: 36415; 85610

== ENCOUNTER 2019-01-16 16:08 | Outpatient (RCR) | payer MEDICARE, OTHER, SELFPAY ==
[2018-10-25 16:17] VITALS: BMI 47.8
[2019-01-16 18:20] LABS: International Normalized Ratio 2.8; Prothrombin Time (Protime)PT. 29.6 SECONDS (11.7-14.9)
== END 2019-01-17 15:01 | disposition home or self-care (01) ==
LOC: LAB 16:08
PROVIDERS: Family Provider Family Medicine; PCP Family Medicine; Referring Provider Internal Medicine Cardiovascular Disease; Visit Provider Internal Medicine Cardiovascular Disease
DX: I34.2 Nonrheumatic mitral (valve) stenosis (principal)
CPT/HCPCS: 36415; 85610

== ENCOUNTER 2019-02-15 13:52 | Outpatient (RCR) | payer MEDICARE, OTHER, SELFPAY ==
[2018-10-25 16:17] VITALS: BMI 47.8
[2019-02-13 17:12] LABS: International Normalized Ratio 1.9; Prothrombin Time (Protime)PT. 21.6 SECONDS (11.7-14.9)
[2019-02-15 15:07] LABS: International Normalized Ratio 2.4; Prothrombin Time (Protime)PT. 25.8 SECONDS (11.7-14.9)
== END 2019-02-15 14:37 | disposition home or self-care (01) ==
LOC: LAB 13:52
PROVIDERS: Family Provider Family Medicine; PCP Family Medicine; Referring Provider Internal Medicine Cardiovascular Disease; Visit Provider Internal Medicine Cardiovascular Disease
DX: I34.2 Nonrheumatic mitral (valve) stenosis (principal)
CPT/HCPCS: 36415; 85610

== ENCOUNTER 2019-03-19 15:40 | Outpatient (RCR) | payer MEDICARE, OTHER, SELFPAY ==
[2018-10-25 16:17] VITALS: BMI 47.8
[2019-03-12 17:25] LABS: International Normalized Ratio 1.6; Prothrombin Time (Protime)PT. 19.3 SECONDS (11.7-14.9)
[2019-03-19 16:38] LABS: International Normalized Ratio 2.4; Prothrombin Time (Protime)PT. 26.3 SECONDS (11.7-14.9)
== END 2019-03-19 16:00 | disposition home or self-care (01) ==
LOC: LAB 15:40
PROVIDERS: Family Provider Family Medicine; PCP Family Medicine; Referring Provider Internal Medicine Cardiovascular Disease; Visit Provider Internal Medicine Cardiovascular Disease
DX: I34.2 Nonrheumatic mitral (valve) stenosis (principal)
CPT/HCPCS: 36415; 85610

== ENCOUNTER 2019-04-09 15:58 | Outpatient (RCR) | payer MEDICARE, OTHER, SELFPAY ==
[2018-10-25 16:17] VITALS: BMI 47.8
[2019-04-09 16:53] LABS: International Normalized Ratio 2.7; Prothrombin Time (Protime)PT. 28.6 SECONDS (11.7-14.9)
== END 2019-04-09 16:58 | disposition home or self-care (01) ==
LOC: LAB 15:58
PROVIDERS: Family Provider Family Medicine; PCP Family Medicine; Referring Provider Internal Medicine Cardiovascular Disease; Visit Provider Internal Medicine Cardiovascular Disease
DX: I34.2 Nonrheumatic mitral (valve) stenosis (principal)
CPT/HCPCS: 36415; 85610

== ENCOUNTER 2019-06-24 16:39 | Outpatient (RCR) | payer MEDICARE, OTHER, SELFPAY ==
[2018-10-25 16:17] VITALS: BMI 47.8
[2019-06-24 16:00] VITALS: BMI 49.4
[2019-06-24 17:44] LABS: International Normalized Ratio 3.2; Prothrombin Time (Protime)PT. 32.9 SECONDS (11.7-14.9)
== END 2019-06-24 17:39 | disposition home or self-care (01) ==
LOC: LAB 16:39
PROVIDERS: Family Provider Family Medicine; PCP Family Medicine; Referring Provider Internal Medicine Cardiovascular Disease; Visit Provider Internal Medicine Cardiovascular Disease
DX: I34.2 Nonrheumatic mitral (valve) stenosis (principal)
CPT/HCPCS: 36415; 85610

== ENCOUNTER → 2019-07-15 | Outpatient (CLI) | payer MEDICARE, OTHER, SELFPAY ==
[2019-06-24 16:00] VITALS: BMI 49.4
--- NOTE | 2019-07-15 07:37 | ECHOCS_ITS ---
Reason For Study: AFIB Procedure This was a 2D Doppler, Color Flow transthoracic echocardiogram. The study was technically difficult. Contrast injection was performed. Exam performed in department. Left Ventricle Normal size and thickness. The estimated ejection fraction is 65 %. Unable to assess diastolic dysfunction. No regional wall motion abnormalities noted. Right Ventricle Moderately dilated right ventricle. Normal systolic function. Atria The left atrium is severely enlarged. Normal right atrium. Normal atrial septum. Mitral Valve Mild diffuse mitral valve thickening. Severe mitral annular calcification extending into the posterior leaflet. Mild mitral valve stenosis. Mild (1+) posteriorly directed mitral valve insufficiency. Tricuspid Valve Normal tricuspid valve. Moderate (2+) tricuspid valve insufficiency. Right ventricular systolic pressure estimated to be 63 mmHg. Severe pulmonary hypertension. Aortic Valve Trisinus/trileaflet aortic valve. Mild diffuse aortic valve thickening. Pulmonic Valve Normal pulmonic valve. Mild (1+) pulmonic valve insufficiency. Great Vessels Calcified aortic root. Mild atherosclerosis of the aortic arch. Normal inferior vena cava. Inferior vena cava collapse with sniff. Pericardium/Pleural No pericardial effusion. Medication 22 gauge I.V. with prn adaptor inserted into right arm. Diluted definity 2.0ml given slow IV push to enhance endocardial definition. MMode/2D Measurements & Calculations LVIDd: 5.5 cm IVSd: 0.89 cm LVOT diam: 2.0 cm LVIDs: 3.6 cm LVPWd: 0.85 cm RVDd: 4.3 cm FS: 35.3 % LVOT area: 3.1 cm2 Ao root diam: 3.6 cm LAV(MOD-bp): 97.8 ml LVAd ap4: 29.6 cm2 LAV(MOD-bp) Indexed: 44.5 ml/m2 EDV(MOD-sp4): 94.9 ml LAV(MOD-sp2): 120.2 ml EDV(sp4-el): 100.1 ml LAV(MOD-sp4): 81.9 ml LVAs ap4: 18.8 cm2 ESV(MOD-sp4): 46.8 ml ESV(sp4-el): 45.1 ml EF(MOD-sp4): 50.7 % EF(sp4-el): 54.9 % SV(MOD-sp4): 48.1 ml SV(sp4-el): 55.0 ml LA A4 area: 27.1 cm2 LA dimension(2D): 4.8 cm RA A4 area: 19.4 cm2 Time Measurements MV dec time: 0.20 sec Doppler Measurements & Calculations MV E max jimi: 162.1 cm/sec MV V2 max: 168.9 cm/sec Ao V2 max: 99.6 cm/sec MV max P.4 mmHg Ao max P.0 mmHg MV V2 mean: 68.0 cm/sec Ao V2 mean: 63.7 cm/sec MV mean P.0 mmHg Ao mean P.8 mmHg MV V2 VTI: 35.6 cm Ao V2 VTI: 20.6 cm PA V2 max: 97.1 cm/sec PI end-d jimi: 178.6 cm/sec TR max jimi: 345.5 cm/sec TR max P.8 mmHg Interpretation Summary The estimated ejection fraction is 65 %. Unable to assess diastolic dysfunction. Moderately dilated right ventricle. The left atrium is severely enlarged. Mild mitral valve stenosis. Mild (1+) posteriorly directed mitral valve insufficiency. Moderate (2+) tricuspid valve insufficiency. Right ventricular systolic pressure estimated to be 63 mmHg. Severe pulmonary hypertension. Compared to echo report dated 03/20/2018, LV function has remained the same, but RVSP has increased from 48 to 63 mm Hg. Pt appears to be in atrial fibrillation. The study was technically difficult. Contrast injection was performed. Ordering Physician: Taj^Roni^^^ Referring Physician: BELLO ESCOBAR Performed By: Jessica Tee, RDCS, RVT
== END | disposition home or self-care (01) ==
LOC: CVS 07:36
PROVIDERS: Family Provider Family Medicine; PCP Family Medicine; Referring Provider Internal Medicine Cardiovascular Disease; Visit Provider Internal Medicine Cardiovascular Disease
DX: I34.2 Nonrheumatic mitral (valve) stenosis (principal); I27.20 Pulmonary hypertension, unspecified; I36.1 Nonrheumatic tricuspid (valve) insufficiency; I48.91 Unspecified atrial fibrillation
CPT/HCPCS: 93306; Q9957; A4216; C8929